=== PATIENT | male | born 1995 | race Caucasian/White ===

== ENCOUNTER 2020-08-13 19:51 | Emergency (ER) | payer MEDICAID ==
[~2020-08-13] VITALS: Ht 182.9 cm; Wt 95.3 kg
--- NOTE | 2020-08-13 19:54 | NUR ---
PT BIBMOMTHER C/O FOUND BLOOD IN STOOL. PT PLACED IN BED 17 ON MONITOR AND PULSE OX. VSS. AWAITING EVAL AND ODERS.
[2020-08-13] MEDS ORDERED: PANTOPRAZOLE 40 MG VIAL IV ONE (20:30)
--- NOTE | 2020-08-13 20:30 | NUR ---
URINE COLLECTED, SENT TO LAB.
[2020-08-13] MEDS ORDERED: PANTOPRAZOLE 40 MG VIAL ONE (20:34)
--- NOTE | 2020-08-13 20:35 | NUR ---
DIRECT CHILL CASTING OPERATOR AT BEDSIDE FOR BLOOD DRAW.
--- NOTE | 2020-08-13 20:57 | NUR ---
PT REFUSING IV, ER PA AWARE.
[2020-08-13 21:10] LABS: BILIRUBIN,URINE NEGATIVE (NEGATIVE); COLOR,URINE YELLOW (YELLOW); LEUKOCYTE ESTERASE ,URINE NEGATIVE (NEGATIVE); NITRITE, URINE NEGATIVE (NEGATIVE); PROTEIN,URINE NEGATIVE (NEGATIVE); UGLUCOSE NEGATIVE (NEGATIVE)
[2020-08-13 21:12] LABS: OCCULT BLOOD STOOL POSITIVE (NEGATIVE)
[2020-08-13 21:16] LABS: BACTERIA,URINE None seen /HPF (None Seen); MUCUS,URINE Few /LPF (None Seen); RBC,URINE 0-2 /HPF (0-2); SQUAMOUS EPITHELIAL CELL,UR 0-2 /HPF (None Seen); WBC,URINE 0-2 /HPF (0-3)
[2020-08-13 21:20] LABS: BASOPHILS % (AUTO) 0.5 % (0.0-2.0); EOSINOPHILS % (AUTO) 3.1 % (0.0-6.0); HEMATOCRIT 48 % (39-51); HEMOGLOBIN 16.6 g/dL (13.5-17.5); LYMPHOCYTES # (AUTO) 3.3 /CMM (0.8-4.8); LYMPHOCYTES % (AUTO) 41.9 % (20.0-44.0); MEAN CORPUSCULAR HGB CONC 35 g/dl (31.0-36.0); MEAN CORPUSCULAR VOLUME 89 fL (80-96); MONOCYTES # (AUTO) 0.8 /CMM (0.1-1.30); MONOCYTES % (AUTO) 10.7 % (2.0-12.0); NEUTROPHILS # (AUTO) 3.5 /CMM (1.8-8.9); NEUTROPHILS % (AUTO) 43.8 % (43.0-81.0); PLATELET COUNT (AUTO) 227 /CMM (150-450); RED BLOOD CELL COUNT(AUTO) 5.37 MIL/uL (4.5-6.0); WHITE BLOOD COUNT (AUTO) 7.9 K/uL (4.3-11.0)
[2020-08-13 21:31] LABS: CALCIUM, SERUM 9.6 mg/dL (8.5-10.1); CREATININE 1.2 mg/dL (0.6-1.3); POTASSIUM 3.8 mmol/L (3.5-5.1)
[2020-08-13 21:38] LABS: ALBUMIN 4.7 g/dL (3.4-5.0); BILIRUBIN,DIRECT 0.3 mg/dL (0.0-0.2); BILIRUBIN,TOTAL 1.6 mg/dL (0.2-1.0); TOTAL PROTEIN, SERUM 8.1 g/dL (6.4-8.2)
[2020-08-13] MEDS ORDERED: IOHEXOL-300 100 ML VIAL IV ONE (22:07)
[2020-08-13] MEDS ORDERED: CT SWABBABLE VALVE TRANS SET 1 EA INFUS.SET MC ONE (22:08)
[2020-08-13] MEDS ORDERED: IV NS 0.9% 250 ML IV ONE (22:08)
--- NOTE | 2020-08-13 22:13 | NUR ---
PT REFUSING IV, STATED HE GOT POKED MANY TIMES.
--- NOTE | 2020-08-13 22:55 | NUR ---
PT AND MOTHER AGREED TO THE CT, IV LAC 18G STARTED.
--- NOTE | 2020-08-13 22:55 | NUR ---
US AT BEDSIDE
[2020-08-13] MEDS ORDERED: DOCU-141 PO (23:48)
--- NOTE | 2020-08-14 00:17 | NUR ---
IV removed. Catheter intact and site benign. Pressure and 4x4 applied to site. No bleeding noted.
--- NOTE | 2020-08-14 00:18 | NUR ---
Patient discharged to home in stable condition. Written and verbal after care instructions given. Patient verbalizes understanding of instruction and RX. Mother at bedside while discharging. Pt ambulated out of ED. VSS.
[2020-08-14 00:19] VITALS: BP 125/72
== END 2020-08-14 00:19 | disposition home or self-care (01) ==
LOC: ER 20:00
DX: K62.5 Hemorrhage of anus and rectum (principal); E80.6 Other disorders of bilirubin metabolism; R74.01 Elevation of levels of liver transaminase levels; F84.0 Autistic disorder
CPT/HCPCS: 36415; 74177; 76705; 80048; 80076; 81001; 82272; 85025; 85730; 86850; 99285; J7050; Q9967; C9113